=== PATIENT | female | born 1990 | race Caucasian/White ===

== ENCOUNTER → 2019-02-26 08:58 | Outpatient (CLI) | payer BC, SELFPAY ==
--- NOTE | 2019-02-26 09:01 | DI.RAD.S_ITS ---
PROCEDURE: XR RIBS RT MIN 3V W CXR 1V INDICATIONS: Right lower costal tenderness along axillary line, cough TECHNIQUE: 2 views of the right ribs were acquired, along with a single view chest. COMPARISON: None. FINDINGS: Surgical changes and devices: None. Bones and chest wall: Nondisplaced 9th and 10th distal right rib fractures. No suspicious bony lesions. Overlying soft tissues appear unremarkable. Bone islands within the right humeral head appear to be present. Lungs and pleura: No pleural effusions or pneumothorax. Increased attenuation overlying the bilateral lung bases is best appreciated overlying the left lung base and a superimposed overlying the patient's breasts. Mediastinum: Mediastinal contours appear normal. Heart size is normal. Other: A moderate amount of stool seen within the colon. IMPRESSION: 1. Nondisplaced 9th and 10th distal right rib fractures. 2. No pneumothorax. 3. Possible constipation. 4. Increased density at the lung bases probably is related to overlying breast tissue. Superimposed pneumonia is difficult to exclude. Dictated by: Gregory Dueñas M.D. on 02/26/2019 at 8:18 Approved by: Gregory Dueñas M.D. on 02/26/2019 at 8:21
== END ==
PROVIDERS: Visit Provider Nurse Practitioner
DX: R07.82 Intercostal pain (principal); S22.41XA Multiple fractures of ribs, right side, initial encounter for closed fracture; R05 Cough; R07.81 Pleurodynia
CPT/HCPCS: 71101